=== PATIENT | male | born 1970 | race Caucasian/White ===

== ENCOUNTER 2017-04-27 13:24 | Emergency (ER) | payer SELFPAY ==
[~2017-04-27 13:24] MED LIST: ISOVUE-370 76%-LOCM 1 ML ONE
[2017-04-27 13:59] LABS: #Eosinphils 0.3 thou/uL (0.0-0.7); #Lymphocytes 1.5 thou/uL (1.20-3.40); #Monocytes 1.2 thou/uL (0.11-0.59); #Neutrophils 14.8 thou/uL (1.40-6.50); %Basophils 0.3 % (0.0-1.0); %Eosinophils 1.6 % (0.0-10.0); %Lymphocytes 8.2 % (21.0-51.0); %Monocytes 6.9 % (0.0-10.0); Hemoglobin 15.2 g/dL (14.0-18.0); Mean Corpuscular HGB CONC 33.8 g/dL (32.0-36.0); Mean Corpuscular Hemoglobin 31.6 pg (27.0-31.0); Mean Corpuscular Volume 93.7 fl (80.0-94.0); Mean Platelet Volume 6.2 fL (7.4-10.4); Platelet Count 320 thou/uL (130-400); RBC Distribution Width 13.3 % (11.5-14.5); White Blood Cell (WBC) Count 17.9 thou/uL (4.8-10.8)
[2017-04-27 14:25] LABS: ALT (SGPT) Less than 7 U/L (8-55); AST (SGOT) 8 U/L (5-34); Albumin 4.2 g/dL (3.5-5.0); Alkaline Phosphatase 111 U/L (40-150); Anion Gap 13 mmol/L (10-20); BUN (Urea Nitrogen) 14 mg/dL (8.9-20.6); Bilirubin, Total 0.3 mg/dL (0.2-1.2); CK (CPK) 167 U/L (30-200); Calc. Creatinine Clearance 0 mL/min (70-130); Calcium 9.3 mg/dL (7.8-10.44); Carbon Dioxide 28 mmol/L (22-29); Chloride 102 mmol/L (98-107); Estimated GFR-MDRD 80; Glucose 122 mg/dL (70-105); Potassium 3.9 mmol/L (3.5-5.1); Protein, Total 7.2 g/dL (6.0-8.3); Sodium 139 mmol/L (136-145)
--- NOTE | 2017-04-27 15:12 | CT ---
CT ABDOMEN AND PELVIS WITH CONTRAST: Date: 04/27/17 HISTORY: Groin pain. COMPARISON: None. FINDINGS: Spleen, liver, and gallbladder are unremarkable. Pancreas unremarkable. No dilated loops of large or small bowel. Moderate stool burden. Aortoiliac contour is nonaneurysmal. There is abnormal edema over the groin bilaterally. There are abnormal superficial and deep inguinal lymph nodes bilaterally. There are a few abnormal external iliac lymph nodes bilaterally. Fibro-osseous cysts bilateral femoral head/neck junction. No other osseous abnormalities appreciated. No hydroureteronephrosis. Small retroperitoneal and aortocaval lymph nodes are present. IMPRESSION: Skin thickening and edema along the inner thigh bilaterally with prominent bilateral superficial and deep inguinal lymph nodes. This may be reactive due to underlying infectious process. No other abnorm alities seen within the abdomen or pelvis. POS: OFF
--- NOTE | 2017-04-27 15:14 | RAD ---
FRONTAL RADIOGRAPH CHEST: Date: 04/27/17 COMPARISON: None. HISTORY: Elevated white blood cell count, groin pain. FINDINGS: Lungs are clear. Heart and mediastinal contours unremarkable. No acute osseous abnormality. IMPRESSION: No acute findings. POS: [facility]
[2017-04-27 15:42] LABS: Bilirubin Negative (Negative); Blood, Urine Negative (Negative); Clarity CLEAR (Clear); Glucose, Urine (Dipstick) Negative (Negative); Leukocyte Negative (Negative); Nitrite Negative (Negative); Protein, Urine (Dipstick) Negative (Neg-Trace); Specific Gravity, Urine 1.041 (1.002-1.036); pH, Urine 5.5 (5.0-9.0)
== END 2017-04-27 16:20 | disposition home or self-care (01) ==
LOC: ERS 13:24
DX: B35.6 Tinea cruris (principal); L03.90 Cellulitis, unspecified; F17.210 Nicotine dependence, cigarettes, uncomplicated; Z71.6 Tobacco abuse counseling
CPT/HCPCS: 36415; 71045; 74177; 80053; 81003; 82550; 83605; 85025; 87040; 87077; 87086; 87186; 96360; 96361; 99406